=== PATIENT | male | born 1990 | race Caucasian/White ===

== ENCOUNTER 2016-07-02 17:33 | Observation (INO) | payer BC ==
[~2016-07-02] VITALS: Ht 180.3 cm; Wt 152.9 kg
== END 2016-07-02 21:55 | disposition short-term general hospital (02) ==
LOC: OBS 17:33
PROVIDERS: ADMIT Family Medicine
DX: R50.9 Fever, unspecified (principal); R05 Cough; B35.3 Tinea pedis; E66.01 Morbid (severe) obesity due to excess calories; R07.89 Other chest pain; I10 Essential (primary) hypertension; Z88.8 Allergy status to other drugs, medicaments and biological substances
CPT/HCPCS: G0378; G0379; J2543

== ENCOUNTER 2016-08-07 07:32 | Emergency (ER) | payer OTHER, BC ==
[~2016-08-07] VITALS: Ht 180.3 cm; Wt 151.5 kg
== END 2016-08-07 07:54 | disposition short-term general hospital (02) ==
LOC: ER 07:32
DX: T75.4XXA Electrocution, initial encounter (principal); I10 Essential (primary) hypertension; W86.1XXA Exposure to industrial wiring, appliances and electrical machinery, initial encounter